=== PATIENT | female | born 1980 | race African-American/Black ===

== ENCOUNTER 2018-10-12 12:07 | Emergency (ER) | payer BC ==
--- NOTE | 2018-10-12 12:56 | ER Document Report ---
ED Medical Screen (RME) - General Chief Complaint: Dizziness Stated Complaint: WEAKNESS,LIGHT HEADED Time Seen by Provider: 10/12/18 12:43 Primary Care Provider: BRITTANY MILLIGAN MD [ACTIVE STAFF] - Follow up as needed (This is a number of primary care doctor that is affiliated with the hospital) Mode of Arrival: Ambulatory Information source: Patient Notes: This is a 37-year-old female who presents to the emergency room with feeling hot, sweats, palpitations. Patient does have a history of having a fast heartbeat and is previous been evaluated by a solar sales ambassador in [place] (Dr. Campo) and is previously been on metoprolol. Patient states she came off th e metoprolol after feeling well. She denies any fevers, chills, shortness of breath. She denies any recent illnesses. She denies any abdominal pain or episodes of diarrhea. TRAVEL OUTSIDE OF THE [place] IN LAST 30 DAYS: No - HPI Onset: Just prior to arrival Onset/Duration: Sudden Quality of pain: No pain Severity: None Associated Symptoms: denies: Chest pain, Fever, Shortness of breath Exacerbated by: Denies Relieved by: Denies Similar symptoms previously: Yes Recently seen / treated by doctor: No - Related Data Smoking: Non-smoker Frequency of alcohol use: None Drug Abuse: None Allergies/Adverse Reactions: No Known Allergies Allergy (Verified 10/12/18 12:09) Past Medical History - General Information source: Patient - Social History Cigarette use (# per day): No Chew tobacco use (# tins/day): No Frequency of alcohol use: None Drug Abuse: None Lives with: Family Family history: None - Past Medical History Cardiac Medical History: Reports: Other - History of tachycardia Pulmonary Medical History: Denies: Hx Asthma Endocrine Medical History: Reports: None Renal/ Medical History: Reports: None. Denies: Hx Peritoneal Dialysis Malignancy Medical History: Reports: None GI Medical History: Reports: None Musculoskeltal Medical History: Reports None Skin Medical History: Reports None Psychiatric Medical History: Reports: None Surgical Hx: Negative - Immunizations Hx Diphtheria, Pertussis, Tetanus Vaccination: Yes Review of Systems - Review of Systems Constitutional: denies: Chills, Fever EENT: No symptoms reported Cardiovascular: Palpitations, Heart racing. denies: Chest pain, Orthopnea, Syncope Respiratory: No symptoms reported Gastrointestinal: No symptoms reported Genitourinary: No symptoms reported Female Genitourinary: No symptoms reported Musculoskeletal: No symptoms reported Skin: No symptoms reported Hematologic/Lymphatic: No symptoms reported Neurological/Psychological: No symptoms reported Physical Exam - Vital signs Vitals: Temp Pulse Resp BP Pulse Ox 99.7 F 178 H 18 122/88 H 100 10/12/18 12:23 10/12/18 12:23 10/12/18 12:23 10/12/18 12:23 10/12/18 12:23 Notes: Physical exam: GENERAL: She is alert and oriented x3, no acute distress HEAD: Atraumatic, normocephalic. EYES: Pupils equal round and reactive to light, extraocular movements intact, sclera anicteric, conjunctiva are normal. ENT: TMs normal, nares patent, oropharynx clear without exudates. Moist mucous membranes. NECK: Normal range of motion, supple without obvious mass or JVD. LUNGS: Breath sounds clear to auscultation bilaterally and equal. No wheezes rales or rhonchi. HEART: Tachycardia without murmurs, rubs or gallops. ABDOMEN: Soft, normoactive bowel sounds. No tenderness to palpation. No guarding, no rebound. No masses appreciated. EXTREMITIES: Normal range of motion, no pitting or edema. No clubbing or cyanos is. NEUROLOGICAL: Cranial nerves II through XII grossly intact. Normal speech, moving all extremities. PSYCH: Normal mood, normal affect. SKIN: Warm, Dry, normal turgor, no rashes or lesions noted. Course - Re-evaluation Re-evalutation: 10/12/18 16:12 I have had a long discussion with the patient to avoid caffeine, chocolate, red wine, cheeses and black licorice. I have advised her to follow-up with a primary care doctor and I given her Dr. Jay Hope's number. - Vital Signs Vital signs: Temp Pulse Resp BP Pulse Ox 99.7 F 114 H 18 136/89 H 100 10/12/18 12:23 10/12/18 16:01 10/12/18 16:01 10/12/18 16:01 10/12/18 16:01 - Laboratory Result Diagrams: 10/12/18 13:26 10/12/18 13:26 Laboratory results interpreted by me: 10/12/18 10/12/18 13:26 13:26 RBC 5.30 H Chloride 108 H Glucose 119 H Calcium 10.3 H - EKG Interpretation by Me Rate: Tachycardia - EKG shows sinus tachycardia with a ventricular rate of 130, no acute ST-T wave changes Doctor's Discharge - Discharge Clinical Impression: Tachycardia Condition: Stable Disposition: HOME, SELF-CARE Additional Instructions: As we discussed your labs look quite good today. Your thyroid test (which could cause issues with fast heartbeat) were all normal. I renewed the metoprolol prescription: You can either take a half a tablet twice a day or 1 tablet daily. I do recommend you follow-up with your doctor: I put the number of one on the chart. Prescriptions: Metoprolol Tartrate [Lopressor 25 mg Tablet] 12.5 mg PO Q12 #30 tab Forms: Return to Work Referrals: BRITTANY MILLIGAN MD [ACTIVE STAFF] - Follow up as needed (This is a number of primary care doctor that is affiliated with the hospital)
[2018-10-12 13:42] LABS: ABSOLUTE EOSINOPHILS # (AUTO) 0.3 10^3/uL (0.0-0.6); ABSOLUTE LYMPHOCYTES (AUTO) 2.2 10^3/uL (0.5-4.7); ABSOLUTE MONOCYTES (AUTO) 0.4 10^3/uL (0.1-1.4); ABSOLUTE NEUT (AUTO) 2.7 10^3/uL (1.7-8.2); BASOPHILS % (AUTO) 0.6 % (0-2); EOSINOPHILS % (AUTO) 4.7 % (0-6); HEMATOCRIT 45.2 % (36.0-47.0); HEMOGLOBIN 15.1 g/dL (12.0-15.5); LYMPHOCYTES % (AUTO) 39.3 % (13-45); MEAN CORPUSCULAR HEMOGLOBIN 28.5 pg (27.0-33.4); MEAN CORPUSCULAR HGB CONC 33.4 g/dL (32.0-36.0); MEAN CORPUSCULAR VOLUME 85 fl (80-97); MONOCYTES % (AUTO) 7.1 % (3-13); PLATELET COUNT 232 10^3/uL (150-450); RED CELL DISTRIBUTION WIDTH 13.7 % (11.5-14.0); SEGMENTED NEUTROPHILS % (AUTO) 48.3 % (42-78); TOTAL CELLS COUNTED % (AUTO) 100 %; WHITE BLOOD COUNT 5.7 10^3/uL (4.0-10.5)
[2018-10-12 14:05] LABS: ALANINE AMINOTRANSFERASE 23 U/L (9-52); ALBUMIN 4.8 g/dL (3.5-5.0); ALKALINE PHOSPHATASE 57 U/L (38-126); ANION GAP 12 (5-19); ASPARTATE AMINO TRANSFERASE 22 U/L (14-36); BILIRUBIN,DIRECT 0.2 mg/dL (0.0-0.4); BILIRUBIN,TOTAL 0.3 mg/dL (0.2-1.3); BLOOD UREA NITROGEN 14 mg/dL (7-20); CALCIUM 10.3 mg/dL (8.4-10.2); CARBON DIOXIDE 23 mmol/L (22-30); CHLORIDE 108 mmol/L (98-107); GLUCOSE 119 mg/dL (75-110); SODIUM 143.2 mmol/L (137-145); TOTAL PROTEIN 8.2 g/dL (6.3-8.2)
[2018-10-12 14:35] LABS: FREE T3 4.04 pg/mL (2.77-5.27); FREE T4 (FREE THYROXINE) 1.04 ng/dL (0.78-2.19)
[2018-10-12 14:48] LABS: THYROID STIMULATING HORMONE 1.46 uIU/mL (0.47-4.68)
[2018-10-12 16:02] VITALS: BP 136/89
--- NOTE | 2018-10-12 20:53 | EKG REPORT ---
SEVERITY:- BORDERLINE ECG - SINUS TACHYCARDIA PROBABLE LEFT ATRIAL ABNORMALITY : Confirmed by: Sandra Mesa MD 12-Oct-2018 20:52:56
== END 2018-10-12 16:13 | disposition home or self-care (01) ==
LOC: ER 12:07
DX: R00.0 Tachycardia, unspecified (principal); R42 Dizziness and giddiness; R53.1 Weakness
CPT/HCPCS: 36415; 80053; 84439; 84443; 84481; 84702; 85025; 93005; 93010; 99285

== ENCOUNTER → 2019-10-10 | Outpatient (CLI) | payer BC ==
--- NOTE | 2019-10-10 16:04 | RADIOLOGY REPORT (SQ) ---
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 TECHNIQUE: Multiplanar imaging includes noncontrasted T1, T2, FLAIR, diffusion with ADC map and post gadolinium contrast T1 sequences. Images stored on PACS. CONTRAST TYPE AND DOSE: 20 mL Dotarem. RENAL FUNCTION: Not indicated. ACR Type II contrast agent associated with few, if any, unconfounded cases of NSF LIMITATIONS: None. FINDINGS: ANATOMY: No anomalies. Normal vascular flow voids. Pituitary fossa normal. CSF SPACES: Normal in size and contour. No hemorrhage. CEREBRUM: Sulci and gyri normal in size and contour. Normal white matter signal on FLAIR imaging. No evidence of hemorrhage, mass, or extraaxial fluid collection. No abnormal enhancement post contrast. POSTERIOR FOSSA: No signal alteration. No hemorrhage. No edema, masses, or mass effect. Internal joan tory canals, cerebellopontine angles, mastoids normal. No enhancing lesions. No abnormal enhancement post contrast. DIFFUSION IMAGING: Negative for acute or subacute infarction. ORBITS: No masses. Globes normal. PARANASAL SINUSES: No fluid levels. Mucosa normal. OTHER: Marrow signal in the calvarium look slightly heterogeneous. This may simply represent physiol ogic thickening of the inner table of the skull. Consider correlation with total body bone scan. IMPRESSION: 1. No overtly worrisome cranial changes. No enhancing metastatic lesions or acute abnormality. Mild ly heterogeneous skull. Consider total body bone scan. EVIDENCE OF ACUTE STROKE: NO. TECHNICAL DOCUMENTATION: JOB ID: [id number] 2010 [employer]- All Rights Reserved Reading location - IP/workstation name: [email or web address]
== END ==
LOC: RAD 14:24
PROVIDERS: ATTEND Nurse Practitioner Family
DX: R51 Headache (principal); H53.8 Other visual disturbances; C50.211 Malignant neoplasm of upper-inner quadrant of right female breast
CPT/HCPCS: 70553; A9576

== ENCOUNTER 2020-07-06 11:05 | Emergency (ER) | payer BC ==
--- NOTE | 2020-07-06 12:15 | ER Document Report ---
ED Medical Screen (RME) - General Chief Complaint: Weakness Stated Complaint: WEAKNESS Time Seen by Provider: 07/06/20 12:07 Primary Care Provider: DAVID BALTAZAR NP-C [Primary Care Provider] - Follow up as needed Information source: Patient Notes: Patient presents complaining of rapid heart rate for the past week. Patient states that she was having some dizziness 5 days ago but none since then. Patient states that she did see her primary doctor who advised her to double her dose of metoprolol. Patient states that she feels as though she was having a bad reaction after taking the metoprolol and has stopped that medicine for the past 3 days. Patient denies any chest pain. Patient denies any dizziness at this time. Patient does state that her food has been getting stuck whenever she eats and she will occasionally vomit it back up. Patient states she is supposed to have a barium swallow scheduled on outpatient basis. Patient states she did eat a cheeseburger and a milkshake last night and everything went down although she reports taking very small bites. I have greeted and performed a rapid initial assessment of this patient. A comprehensive ED assessment and evaluation of the patient, analysis of test results and completion of the medical decision making process will be conducted by additional ED providers. TRAVEL OUTSIDE OF THE [place] IN LAST 30 DAYS: No - Related Data Allergies/Adverse Reactions: No Known Allergies Allergy (Verified 10/12/18 12:09) Past Medical History - Social History Frequency of alcohol use: None Family history: None Pulmonary Medical History: Denies: Hx Asthma Renal/ Medical History: Denies: Hx Peritoneal Dialysis - Immunizations Hx Diphtheria, Pertussis, Tetanus Vaccination: Yes Physical Exam - Vital signs Vitals: Temp Pulse Resp BP Pulse Ox 98.0 F 110 H 16 128/73 H 100 07/06/20 11:07/06/20 11:07/06/20 11:07/06/20 11:07/06/20 11:27 - Respiratory Respiratory status: No respiratory distress Breath sounds: Normal - Cardiovascular Rhythm: Tachycardia Heart sounds: S1 appreciated, S2 appreciated Murmur: No Course - Vital Signs Vital signs: Temp Pulse Resp BP Pulse Ox 98.0 F 110 H 16 128/73 H 100 07/06/20 11:07/06/20 11:07/06/20 11:07/06/20 11:27 07/06/20 11:27 Doctor's Discharge - Discharge Referrals: DAVID BALTAZAR NP-C [Primary Care Provider] - Follow up as needed
--- NOTE | 2020-07-06 12:40 | RADIOLOGY REPORT (SQ) ---
EXAM DESCRIPTION: CHEST SINGLE VIEW IMAGES COMPLETED DATE/TIME: 07/06/2020 12:26 pm REASON FOR STUDY: rapid HR COMPARISON: 12/17/2013 EXAM PARAMETERS: NUMBER OF VIEWS: One view. TECHNIQUE: Single frontal radiographic view of the chest acquired. RADIATION DOSE: NA LIMITATIONS: None. FINDINGS: LUNGS AND PLEURA: Increased opacification throughout the lung bases compared to prior film . Suspect underlying basilar airspace disease right greater than left. [id number] remains in liyah ce. No pneumothorax. MEDIASTINUM AND HILAR STRUCTURES: No masses. Contour normal. HEART AND VASCULAR STRUCTURES: Mild cardiomegaly. No failure. BONES: No acute findings. HARDWARE: None in the chest. OTHER: No other significant finding. IMPRESSION: Increased opacification in both lung bases right greater than left most likely pneumonia . TECHNICAL DOCUMENTATION: JOB ID: [id number] 2010 [employer]- All Rights Reserved Reading location - IP/workstation name: [email or web address]
[2020-07-06 12:53] LABS: ABSOLUTE EOSINOPHILS # (AUTO) 0.1 10^3/uL (0.0-0.6); ABSOLUTE LYMPHOCYTES (AUTO) 1.4 10^3/uL (0.5-4.7); ABSOLUTE MONOCYTES (AUTO) 0.2 10^3/uL (0.1-1.4); ABSOLUTE NEUT (AUTO) 1.6 10^3/uL (1.7-8.2); BASOPHILS % (AUTO) 0.5 % (0-2); EOSINOPHILS % (AUTO) 1.7 % (0-6); HEMATOCRIT 37.2 % (36.0-47.0); LYMPHOCYTES % (AUTO) 42.6 % (13-45); MEAN CORPUSCULAR HEMOGLOBIN 26.7 pg (27.0-33.4); MEAN CORPUSCULAR HGB CONC 32.2 g/dL (32.0-36.0); MEAN CORPUSCULAR VOLUME 83 fl (80-97); MONOCYTES % (AUTO) 6.5 % (3-13); PLATELET COUNT 213 10^3/uL (150-450); RED BLOOD COUNT 4.47 10^6/uL (3.72-5.28); RED CELL DISTRIBUTION WIDTH 17.9 % (11.5-14.0); SEGMENTED NEUTROPHILS % (AUTO) 48.7 % (42-78); TOTAL CELLS COUNTED % (AUTO) 100 %; WHITE BLOOD COUNT 3.2 10^3/uL (4.0-10.5)
[2020-07-06 13:13] LABS: ALKALINE PHOSPHATASE 42 U/L (38-126); ANION GAP 12 (5-19); ASPARTATE AMINO TRANSFERASE 61 U/L (14-36); BILIRUBIN,TOTAL 0.7 mg/dL (0.2-1.3); BLOOD UREA NITROGEN 11 mg/dL (7-20); CALCIUM 9.6 mg/dL (8.4-10.2); CARBON DIOXIDE 21 mmol/L (22-30); CHLORIDE 109 mmol/L (98-107); GLUCOSE 104 mg/dL (75-110); POTASSIUM 3.5 mmol/L (3.6-5.0)
--- NOTE | 2020-07-06 14:08 | EKG REPORT ---
SEVERITY:- ABNORMAL ECG - SINUS TACHYCARDIA PROBABLE LEFT ATRIAL ABNORMALITY NONSPECIFIC T ABNORMALITIES, LATERAL LEADS : Confirmed by: Dennis Han MD 06-Jul-2020 14:07:31
[2020-07-06] MEDS ORDERED: NORMAL SALINE 1000 ML 1,000 ML IV ONE (14:52)
--- NOTE | 2020-07-06 15:00 | ER Document Report ---
ED Dizziness/Weakness - General Chief Complaint: Weakness Stated Complaint: WEAKNESS Time Seen by Provider: 07/06/20 12:07 Primary Care Provider: DAVID BALTAZAR NP-C [Primary Care Provider] - Follow up as needed Mode of Arrival: Ambulatory Information source: Patient Notes: 39-year-old woman presenting to the emergency department with a history of tachycardia. States that she was seen in her primary care doctor's office and started on a beta-ivania. Patient does not know the dose of the medication or which beta-ivania she was taken. However, states that it caused her to feel weaker and dizzy, on Monday she discontinued the medication. She presents to the emergency department now with tachycardia and continued weakness. She confirms shortness of breath with exertion and loss of energy. She denies chest pain or palpitations, she also denies history of thyroid problems. TRAVEL OUTSIDE OF THE [place] IN LAST 30 DAYS: No - Related Data Allergies/Adverse Reactions: No Known Allergies Allergy (Verified 10/12/18 12:09) Past Medical History - General Information source: Patient - Social History Smoking Status: Never Smoker Frequency of alcohol use: None Family History: Reviewed & Not Pertinent Pulmonary Medical History: Denies: Hx Asthma Renal/ Medical History: Denies: Hx Peritoneal Dialysis - Immunizations Hx Diphtheria, Pertussis, Tetanus Vaccination: Yes Review of Systems - Review of Systems Notes: Constitutional: + Fatigue HENT: Negative for sore throat. Eyes: Negative for visual changes. Cardiovascular: See HPI Respiratory: Negative for shortness of breath. Gastrointestinal: Negative for abdominal pain, vomiting or diarrhea. Genitourinary: Negative for dysuria. Musculoskeletal: Negative for back pain. Skin: Negative for rash. Neurological: Negative for headaches, weakness or numbness. 10 point ROS negative except as marked above and in HPI. Physical Exam - Vital signs Vitals: Temp Pulse Resp BP Pulse Ox 98.0 F 110 H 16 128/73 H 100 07/06/20 11:27 07/06/20 11:27 07/06/20 11:27 07/06/20 11:27 07/06/20 11:27 - Notes Notes: PHYSICAL EXAMINATION: Physical Exam: General: Well-nourished well-developed 39-year-old female in no acute distress HEENT: NC/AT, pupils equal round and reactive to light, MM moist,nares clear, oropharynx clear, airway patent Neck: supple, no adenopathy, no masses. Good range of motion Lungs: clear, no wheezing, no rales no rhonchi CVS: Tachycardic rate and rhythm no murmur gallop or rub Abdomen: Soft, active, nontender, no masses, no hepatosplenomegaly Ext: No edema, clubbing or cyanosis. Neuro: Alert and responsive, moving all 4 extremities on command, cranial nerves intact, no focal findings Skin: Intact no open lesions, no rash Course - Re-evaluation Re-evalutation: 07/06/20 17:36 The patient's chest x-ray has findings suggestive of bilateral bibasilar infiltrate right greater than left possible pneumonia. CT scan is negative for pulmonary embolus groundglass appearance within the basilar areas of the lungs bilaterally findings consistent with early failure or infection. I discussed the patient with the social insurance adviser on-call Dr. Han, given the minor bump in troponin infectious signs and symptoms on chest x-ray, it is felt that treating the patient's underlying pathology would be pertinent before using a rate controlling beta-ivania. I explained to the patient that she has been given a prescription for antibiotics as well as a steroid and follow-up with her primary care doctor per the appointment she has on would be reasonable plan. A COVID-19 swab is being collected and the patient has been made a person of interest. I have explained to the patient that she will have to self quarantine until she receives the results of the testing the patient acknowledges understanding of this plan. - Vital Signs Vital signs: Temp Pulse Resp BP Pulse Ox 98.0 F 110 H 16 128/73 H 99 07/06/20 11:27 07/06/20 11:27 07/06/20 11:27 07/06/20 11:27 07/06/20 12:13 - Laboratory Result Diagrams: 07/06/20 12:34 07/06/20 12:34 Laboratory results interpreted by me: 07/06/20 07/06/20 07/06/20 12:34 12:34 15:50 WBC 3.2 L MCH 26.7 L RDW 17.9 H Absolute Neuts (auto) 1.6 L Potassium 3.5 L Chloride 109 H Carbon Dioxide 21 L AST 61 H ALT 117 H Urine Protein 100 H 11/30/20 14:57 I have reviewed laboratory data and used this information for the treatment decisions regarding the patient. - Diagnostic Test Radiology reviewed: Image reviewed, Reports reviewed Radiology results interpreted by me: 07/06/20 14:58 Chest X-Ray 07/06/20 12:13 IMPRESSION: Increased opacification in both lung bases right greater than left most likely pneumonia. - EKG Interpretation by Me Rate: Tachycardia - EKG interpreted by Dr. Jeff: Sinus tachycardia, rate 135, DC interval 120 ms, QT interval 271 ms, normal axis, left atrial abnormality, nonspecific T wave abnormalities, no ischemic findings, there is no old EKG to compare to today's findings. Interpretation abnormal EKG Discharge - Discharge Clinical Impression: Tachycardia, Suspected COVID-19 virus infection Pneumonia Qualifiers: Pneumonia type: due to unspecified organism Laterality: bilateral Lung location: lower lobe of lung Qualified Code(s): J18.9 - Pneumonia, unspecified organism Condition: Good Disposition: HOME, SELF-CARE Instructions: COVID-19 Guidance for Persons Under Investigation Additional Instructions: You are seen in the emergency department with a history of resting fast hear tbeat. Findings on the x-ray today suggest that you may have an early pneumonia. You have been given prescription for antibiotics and a steroid. Because we are in a pandemic and the coronavirus can also call us some of the similar symptoms that you are having you are being made a person of interest. Please self quarantine until you receive the results of your test. Please follow-up with your primary care doctor on per the appointment that you have made. If your symptoms are worsening or if you are having increasing shortness of breath or other concerns you may return to the emergency department for further evaluation and treatment. HOME CARE INSTRUCTIONS & INFORMATION: Thank you for choosing us for your medical needs. We hope you're satisfied with the care you received. After you leave, you must properly care for your problem and, at the same time, observe its progress. Any condition can change. Some illnesses can change rapidly over hours or days. If your condition worsens, return to the Emergency Department or see your physician promptly. ABOUT YOUR X-RAYS AND EKG'S: If you had an EKG or X-rays taken, they have been read by the Emergency Physician. The X-rays and EKG's will also be read by a Radiologist or Drum Filler within 24 hours. If discrepancies are noted, you will be notified by telephone. Please be certain the ED has a correct telephone number & address where you can be reached. Also, realize that some fractures or abnormalities do not show up on initial X-rays. If your symptoms continue, see your physician. ABOUT YOUR LABORATORY TEST: If you had laboratory tests, the results have been reviewed by the Emergency Physician. Some test results (for example cultures) may not be available for several days. You will be contacted if any test result shows you need additional treatment. Please be certain the ED has a correct telephone number and address where you can be reached. ABOUT YOUR MEDICATIONS: You will receive instructions on how to take your medicine on the prescription label you receive. Additional information may be provided by the Pharmacy. If you have questions afterwards, call the ED for clarification or further instructions. Some prescribed medications may cause drowsiness. Do not perform tasks such as driving a car or operating machinery without consulting your Pharmacist. If you feel you need a refill of pain medication, your condition will need re-evaluation. Please do not call for a refill of any medication. ABOUT YOUR SIGNATURE: Signature of this document acknowledges to followin. Understanding that you received emergency treatment and that you may be released before al medical problems are known or treated. Please be certain the ED has a correct phone number & address where you can be reached. 2. Acknowledgement that you will arrange for follow-up care as recommended. 3. Authorization for the Emergency Physician to provide information to your follow-up Physician in order to maximize your care. AT ANY TIME, IF YOUR SYMPTOMS CHANGE SIGNIFICANTLY OR WORSEN OR YOU DEVELOP NEW SYMPTOMS, RETURN TO THE EMERGENCY DEPARTMENT IMMEDIATELY FOR RE-EVALUATION. OUR GOAL IS TO PROVIDE EXCELLENT MEDICAL CARE! WE HOPE THAT WE HAVE MET YOUR EXPECTATIONS DURING YOUR EMERGENCY DEPARTMENT VISIT AND THAT YOU FEEL YOU HAVE RECEIVED EXCELLENT CARE! Prescriptions: Dexamethasone [Decadron] 6 mg PO DAILY 5 Days #5 tablet Azithromycin [Zithromax 250 mg Tablet] 250 mg PO ASDIR PRN #6 tablet PRN Reason: Referrals: DAVID BALTAZAR NP-C [Primary Care Provider] - Follow up as needed
--- NOTE | 2020-07-06 15:47 | RADIOLOGY REPORT (SQ) ---
EXAM DESCRIPTION: CTA CHEST IMAGES COMPLETED DATE/TIME: 07/06/2020 3:37 pm REASON FOR STUDY: Tachycardia, shortness of breath COMPARISON: Chest x-ray done earlier the same day. TECHNIQUE: CT scan of the chest performed using helical scanning technique with dynamic intravenous contrast injection. Images reviewed with lung, soft tissue and bone windows. Reconstructed coronal and sagittal MPR images reviewed. Additional 3 dimensional post-processing performed to develop Maximal Intensity Projection images (IN P). All images stored on PACS. All CT scanners at this facility use dose modulation, iterative reconstruction, and/or weight based d osing when appropriate to reduce radiation dose to as low as reasonably achievable (ALARA). [facility]: Dose Right [facility]: CareDose [facility]: Dose Right [facility]: Teradose 4D [facility]: [employer]Web CONTRAST TYPE AND DOSE: contrast/concentration: Isovue 350.00 mmol/ml; Total Contrast Delivered: 75. 0 ml; Total Saline Delivered: 72.0 ml Contrast bolus optimized for the pulmonary arteries. Not diagnostic for the aorta. RENAL FUNCTION: BUN 11, creatinine 0.67 RADIATION DOSE: CT Rad equipment meets quality standard of care and radiation dose reduction techniq ues were employed. CTDIvol: 24.1 - 26.4 mGy. DLP: 945 mGy-cm. . LIMITATIONS: None. FINDINGS: LUNGS AND PLEURA: There are small bilateral pleural effusions right greater than left. No consolidation. Minimal areas of ground-glass opacity most likely atelectasis. Possibly developing edema. AORTA AND GREAT VESSELS: No aneurysm. Contrast bolus not optimized for the aorta. HEART: No pericardial effusion. No significant coronary artery calcifications. PULMONARY ARTERIES: No emboli visualized in the main pulmonary arteries or the segmental branches. HILAR AND MEDIASTINAL STRUCTURES: No identified masses or abnormal nodes. HARDWARE: None in the chest. UPPER ABDOMEN: No significant findings. Limited exam. THYROID AND OTHER SOFT TISSUES: No masses. No adenopathy. BONES: No acute or significant finding. 3D MIPS: Confirm above findings. OTHER: No other significant finding. IMPRESSION: Small bilateral pleural effusions and patchy ground-glass opacity either representing at electasis or developing edema. No focal consolidation. No pulmonary emboli. COMMENT: Quality ID # [id number]: Final reports with documentation of one or more dose reduction techniques (e.g., Automated exposure control, adjustment of the mA and/or kV according to patient size, use of iterative reconstruction technique) TECHNICAL DOCUMENTATION: JOB ID: [id number] 2010 [employer]- All Rights Reserved Reading location - IP/workstation name: [email or web address]
[2020-07-06 16:23] LABS: APPEARANCE,URINE SLIGHTLY-CLOUDY; BILIRUBIN,URINE NEGATIVE (NEGATIVE); COLOR,URINE YELLOW; GLUCOSE, URINE NEGATIVE (NEGATIVE); KETONES,URINE NEGATIVE (NEGATIVE); PROTEIN,URINE 100 mg/dL (NEGATIVE); URINE SPECIFIC GRAVITY 1.059; UROBILINOGEN,URINE NEGATIVE mg/dL (<2.0)
[2020-07-06 18:15] VITALS: BP 122/94
== END 2020-07-06 18:00 | disposition home or self-care (01) ==
LOC: ER 11:05
DX: J18.9 Pneumonia, unspecified organism (principal); R53.1 Weakness; R00.0 Tachycardia, unspecified; R53.83 Other fatigue; Z20.828 Contact with and (suspected) exposure to other viral communicable diseases
CPT/HCPCS: 93005; 99285; 96360; 36415; 83735; 84443; 84703; 85025; 80053; 81001; 84484; 71045; 71275; 93010; U0003; J7030; C9803; 87635

== ENCOUNTER → 2020-07-10 | Outpatient (CLI) | payer BC ==
--- NOTE | 2020-07-10 16:39 | RADIOLOGY REPORT (SQ) ---
EXAM DESCRIPTION: BARIUM SWALLOW ESOPHAGUS IMAGES COMPLETED DATE/TIME: 07/10/2020 8:41 am REASON FOR STUDY: (R13.10)DYSPHAGIA, UNSPECIFIED R13.10 DYSPHAGIA, UNSPECIFIED COMPARISON: None. TECHNIQUE: Under fluoroscopic guidance, patient ingested effervescent granules followed by thick and thin barium. Fluoroscopic spot images and routine radiographic images acquired and stored on PACS. 12 MM BARIUM TABLET GIVEN: Barium tablet passed through the esophagus and into the stomach without de lay. LIMITATIONS: None. FLUOROSCOPY TIME: FLUORO TIME: 3.7 minutes. 9 images saved to PACS. FINDINGS: NEUROMUSCULAR COORDINATION OF SWALLOW: Normal. No aspiration. ESOPHAGEAL MOTILITY: Esophageal dysmotility in the distal esophagus. No esophageal spasm. ESOPHAGEAL MUCOSA: There is a smooth narrowing in the distal 3rd of the esophagus, that has the appea rosalba of a right-sided extrinsic compression. However, upon review of the CT chest of 07/06/2020 the re is no mass in this area. Moderate stasis of the barium is seen through this area. GASTRO-ESOPHAGEAL JUNCTION: No hiatal hernia. Mild gastroesophageal reflux. NON-GI TRACT STRUCTURES: No significant finding. OTHER: No other significant finding. IMPRESSION: SMOOTH NARROWING OF THE DISTAL 3RD OF ESOPHAGUS WITH APPEARANCE OF EXTRINSIC COMPRESSION , HOWEVER COMPARISON CT DEMONSTRATES NO MASS IN THIS AREA. MODERATE ESOPHAGEAL DYSMOTILITY. MILD GA STROESOPHAGEAL REFLUX SEEN. RECOMMENDATION: UPPER ENDOSCOPY RECOMMENDED FOR FURTHER EVALUATION COMMENT: None Quality ID [id number]: Final reports for procedures using fluoroscopy that document radiation exposure meaghan ivan, or exposure time and number of fluorographic images (if radiation exposure indices are not avail able) TECHNICAL DOCUMENTATION: JOB ID: [id number] 2010 [employer]- All Rights Reserved Reading location - IP/workstation name: [email or web address] [id number]
== END ==
LOC: RAD 07:57
PROVIDERS: ATTEND Nurse Practitioner Adult Health
DX: K21.9 Gastro-esophageal reflux disease without esophagitis (principal); R13.10 Dysphagia, unspecified
CPT/HCPCS: 74220

== ENCOUNTER 2020-07-18 14:21 | Emergency (ER) | payer BC ==
--- NOTE | 2020-07-18 14:32 | ER Document Report ---
ED Medical Screen (RME) - General Stated Complaint: DIFFICULTY BREATHING LEFT SIDE PAIN Time Seen by Provider: 07/18/20 14:24 Primary Care Provider: BRITTANY MILLIGAN MD [Primary Care Provider] - Follow up as needed TRAVEL OUTSIDE OF THE [place] IN LAST 30 DAYS: No - HPI Notes: 07/18/20 14:30 39-year-old female with history of breast cancer currently in remission presents to ED for evaluation of increased shortness of breath. Patient recently seen by [facility] physician and was evaluated by an echocardiogram which showed weakened cardiac contractility. She was placed on Lasix and Entresto. Patient states that she has had increased shortness of breath as well as bilateral lower extremity swelling. Notes that she has increased dyspnea with exertion. Patient denies any sick contacts. Notes that she has some chest pressure. Patient states she also has a heart monitor in place however does not know which company it is from. Patient is supposed to see the food and beverage assistant manager for follow-up next week. - Related Data Allergies/Adverse Reactions: No Known Allergies Allergy (Verified 10/12/18 12:09) Past Medical History - Social History Family history: None Pulmonary Medical History: Denies: Hx Asthma Renal/ Medical History: Denies: Hx Peritoneal Dialysis - Immunizations Hx Diphtheria, Pertussis, Tetanus Vaccination: Yes Physical Exam - Vital signs Vitals: General: No acute distress. Alert and oriented x3. Sitting comfortably in a stretcher. Skin: No jaundice, pallor, petechiae, or rashes. Warm and dry. Heart: Regular rapid rate and rhythm. S1,S2. No murmurs, rubs, or gallops. Lungs: Clear to auscultation bilaterally. No wheezes, rhonchi, rales. Equal chest expansion. No retractions. Abdomen: Soft, nontender to palpation, nondistended. Positive bowel sounds in all 4 quadrants. No masses. No CVA tenderness bilaterally. Back: No midline spinal TTP. No paraspinous muscular TTP. Neuro: GCS 15. Moving all extremities without discomfort. Psych: Mood and affect appropriate. Doctor's Discharge - Discharge Referrals: BRITTANY MILLIGAN MD [Primary Care Provider] - Follow up as needed
--- NOTE | 2020-07-18 15:35 | RADIOLOGY REPORT (SQ) ---
EXAM DESCRIPTION: CHEST SINGLE VIEW IMAGES COMPLETED DATE/TIME: 07/18/2020 3:22 pm REASON FOR STUDY: dyspnea COMPARISON: Chest radiographs 07/06/2020. EXAM PARAMETERS: NUMBER OF VIEWS: One view. TECHNIQUE: Single frontal radiographic view of the chest acquired. RADIATION DOSE: NA LIMITATIONS: None. FINDINGS: LUNGS AND PLEURA: Elevation of the left hemidiaphragm. Left basilar consolidation. No pn eumothorax. MEDIASTINUM AND HILAR STRUCTURES: No masses. Contour normal. Surgical clips project over the right hilum. HEART AND VASCULAR STRUCTURES: Cardiomegaly. Normal vasculature. BONES: No acute findings. HARDWARE: Electronic device projecting over the left in the chest. Unchanged positioning of a left s mall port catheter. OTHER: Right axillary surgical clips. IMPRESSION: Left lower lobe volume loss. Left basilar consolidation likely representing atelectasis , infection and/or pleural effusion. TECHNICAL DOCUMENTATION: JOB ID: [id number] 2010 [employer]- All Rights Reserved Reading location - IP/workstation name: [email or web address]
[2020-07-18 16:08] LABS: ABSOLUTE LYMPHOCYTES (AUTO) 1.2 10^3/uL (0.5-4.7); ABSOLUTE MONOCYTES (AUTO) 0.9 10^3/uL (0.1-1.4); ABSOLUTE NEUT (AUTO) 7.7 10^3/uL (1.7-8.2); BASOPHILS % (AUTO) 0.4 % (0-2); EOSINOPHILS % (AUTO) 0.4 % (0-6); HEMATOCRIT 38.8 % (36.0-47.0); HEMOGLOBIN 12.6 g/dL (12.0-15.5); LYMPHOCYTES % (AUTO) 11.7 % (13-45); MEAN CORPUSCULAR HEMOGLOBIN 26.6 pg (27.0-33.4); MEAN CORPUSCULAR HGB CONC 32.6 g/dL (32.0-36.0); MEAN CORPUSCULAR VOLUME 82 fl (80-97); MONOCYTES % (AUTO) 9.2 % (3-13); PLATELET COUNT 231 10^3/uL (150-450); RED BLOOD COUNT 4.76 10^6/uL (3.72-5.28); RED CELL DISTRIBUTION WIDTH 17.5 % (11.5-14.0); SEGMENTED NEUTROPHILS % (AUTO) 78.3 % (42-78); TOTAL CELLS COUNTED % (AUTO) 100 %; WHITE BLOOD COUNT 9.9 10^3/uL (4.0-10.5)
[2020-07-18 16:12] LABS: INTERNATIONAL RATION (INR) 1.41; PROTHROMBIN TIME 17.4 SEC (11.4-15.4)
[2020-07-18 16:28] LABS: ALBUMIN 3.8 g/dL (3.5-5.0); ALKALINE PHOSPHATASE 48 U/L (38-126); ANION GAP 13 (5-19); ASPARTATE AMINO TRANSFERASE 96 U/L (14-36); BILIRUBIN,DIRECT 0.3 mg/dL (0.0-0.4); BILIRUBIN,TOTAL 1.4 mg/dL (0.2-1.3); BLOOD UREA NITROGEN 17 mg/dL (7-20); CALCIUM 9.2 mg/dL (8.4-10.2); CARBON DIOXIDE 23 mmol/L (22-30); CHLORIDE 105 mmol/L (98-107); CREATINE KINASE 60 U/L (30-135); GLUCOSE 114 mg/dL (75-110); POTASSIUM 3.8 mmol/L (3.6-5.0); TOTAL PROTEIN 6.9 g/dL (6.3-8.2)
[2020-07-18 16:39] LABS: NT PRO BNP 4190 pg/mL (<125); TROPONIN I 0.019 ng/mL
[2020-07-18 16:40] LABS: CREATINE KINASE MB < 0.22 ng/mL (<4.55)
--- NOTE | 2020-07-18 18:59 | ER Document Report ---
Entered by ABDIRASHID PANDYA SCRIBE 07/18/20 1823 Acting as scribe for:YASIR WEATHERS MD ED Respiratory Problem - General Chief Complaint: Shortness Of Breath Stated Complaint: DIFFICULTY BREATHING LEFT SIDE PAIN Time Seen by Provider: 07/18/20 14:24 Information source: Patient, [facility] Records Notes: This 39 year old female patient presents to the emergency department today with complaints of shortness of breath. Patient has been having shortness of breath the last few weeks. She was seen here on 07/06/2020 and had a CTA of the chest which was read as small bilateral pleural effusions and patchy groundglass opacity either representing atelectasis or developing edema. No focal consolid ations and no pulmonary emboli. Or heart rate on EKG was 135 on that visit. She followed up with Dr Dennis Han from cardiology and had an echo done and a heart monitor placed. She does not know what the echo showed, but was told that her heart muscle was weak. I did call her primary care provider who knew that she had a reduced ejection fraction, but he did not have the percent EF reading. She was started on Entresto and Lasix 20 mg daily on 07/16/2020, and continued on metoprolol. She reports she has been urinating quite a bit on the Lasix, and has been avoiding foods that are high in sodium content. She reports she has been having increasing shortness of breath and dyspnea on exertion and that her legs have been swelling since she started taking the Entresto and Lasix. Patient's past history is significant for right-sided breast cancer, she was on chemo from August 2019 through December 2019, had a double mastectomy on February 2020 with a right axillary node dissection. She also became hypertensive after her surgery and was started on metoprolol for this. TRAVEL OUTSIDE OF THE [place] IN LAST 30 DAYS: No - Related Data Allergies/Adverse Reactions: No Known Allergies Allergy (Verified 07/18/20 16:05) Past Medical History - General Information source: Patient, [facility] Records - Social History Smoking Status: Never Smoker Cigarette use (# per day): No Chew tobacco use (# tins/day): No Smoking Education Provided: No Frequency of alcohol use: None Drug Abuse: None Lives with: Family Family History: Reviewed & Not Pertinent - Past Medical History Cardiac Medical History: Reports: Hx Congestive Heart Failure, Hx Hypertension, Other - Cardiomyopathy Pulmonary Medical History: Reports: None EENT Medical History: Reports: None Neurological Medical History: Reports: None Endocrine Medical History: Reports: None Renal/ Medical History: Reports: None Malignancy Medical History: Reports: Hx Breast Cancer - R breast ca. chemo 08/2019-12/2019. Bilateral mastectomy 02/2020 Past Surgical History: Reports: Hx Mastectomy - Bilateral mastectomy with axillary node dissection February 2020 - Immunizations Hx Diphtheria, Pertussis, Tetanus Vaccination: Yes Review of Systems - Review of Systems Constitutional: No symptoms reported EENT: No symptoms reported Cardiovascular: No symptoms reported Respiratory: See HPI, Short of breath Gastrointestinal: No symptoms reported Genitourinary: No symptoms reported Female Genitourinary: No symptoms reported Musculoskeletal: See HPI, Leg swelling, Ankle swelling Skin: No symptoms reported Hematologic/Lymphatic: No symptoms reported Neurological/Psychological: No symptoms reported -: Yes All other systems reviewed and negative Physical Exam - Vital signs Vitals: Resp Pulse Ox 20 18 L 07/18/20 15:00 07/18/20 15:00 - General General appearance: Alert In distress: Mild - HEENT Head: Normocephalic, Atraumatic Eyes: Normal Pupils: PERRL - Respiratory Respiratory status: Tachypnea Breath sounds: Rales Chest palpation: Other - Patient has a PowerPort, and a monitoring engineer on the left side. - Cardiovascular Rhythm: Tachycardia Heart sounds: Normal auscultation - Abdominal Inspection: Obese Bowel sounds: Normal Tenderness: Nontender - Back Back: Normal - Extremities General upper extremity: Normal inspection General lower extremity: Edema - 1+ pitting edema - Neurological Neuro grossly intact: Yes - Psychological Associated symptoms: Normal affect, Normal mood - Skin Skin Temperature: Warm Skin Moisture: Dry Skin Color: Normal Course - Re-evaluation Re-evalutation: 07/18/20 20:38 Patient was initially accepted by her primary care provider Dr. Kline. Consultation was made to the on-call dance master Dr. Campo. Dr. Campo called her dance master Dr. Han who said her ejection fraction was in the 20s, she was supposed to go to [place] on Monday for a cardiac cath, so Dr. Han called [place] to see if they would accept her in transfer this evening. I received a call from the transfer center and eventually spoke with Dr. Clark from the CICU and he accepted the patient to their unit to maximize her medical therapy under their care. - Vital Signs Vital signs: Temp Pulse Resp BP Pulse Ox 98.2 F 28 H 92/60 L 100 07/18/20 19:42 07/18/20 19:42 07/18/20 21:11 07/18/20 19:42 - Laboratory Results Result Diagrams: 07/18/20 15:56 07/18/20 15:56 Laboratory Results Interpreted: 07/18/20 07/18/20 07/18/20 15:56 15:56 15:56 MCH 26.6 L RDW 17.5 H Lymph % (Auto) 11.7 L Seg Neutrophils % 78.3 H PT D-Dimer Glucose 114 H Total Bilirubin 1.4 H AST 96 H ALT 255 H NT-Pro-B Natriuret Pep 4190 H 07/18/20 07/18/20 15:56 15:59 MCH RDW Lymph % (Auto) Seg Neutrophils % PT 17.4 H D-Dimer 2.56 H Glucose Total Bilirubin AST ALT NT-Pro-B Natriuret Pep Critical Laboratory Results Reviewed: Yes Attending or Supervising Physician who Reviewed Labs: YASIR WEATHERS - Elevated BNP - Radiology Results Radiology Results Interpreted: 07/18/20 19:29 See the radiology CXR report. Critical Radiology Results Reviewed: Yes Attending or Supervising Physician who Reviewed Radiology: YASIR WEATHERS - PVC - EKG Interpretation by Nv EKG shows normal: Sinus rhythm, Huddy, Intervals, QRS Complexes, ST-T Waves Rate: Tachycardia - 145 Voltage: Consistent with LVH P Waves: LAE When compared to previous EKG there are: Changes noted - Consults Dr. Kline Time consulted: 18:20 Consulted provider: will see as inpatient - IMCU admission and consult Dr. Emma bustos for cardiology. Dr. Campo Time consulted: 19:00 Consulted provider: will see as inpatient - Plans to contact Dr. Han tomorrow about his patient. - Transfer of Care Care transferred to following provider: Dr. Lazaro Notes: 07/18/20 21:46 Patient is pending transfer to [facility]. [facility] will be transporting the patient. Critical Care Note - Critical Care Note Total time excluding time spent on procedures (mins): 35 Comments: At least 35 minutes spent evaluating the patient getting history and physical, reviewing x-rays lab work, reviewing prior visits with CT scans and lab work. Discussing the patient with her primary care provider to get admission started, discussing the patient with on-call cardiology. Reevaluations of the patient while she is in tachycardia with low blood pressure and mild congestive heart failure. Discharge - Discharge Clinical Impression: Congestive cardiomyopathy, Tachycardia Congestive heart failure (CHF) Qualifiers: Heart failure type: unspecified Heart failure chronicity: acute Qualified Code(s): I50.9 - Heart failure, unspecified Hypotension Qualifiers: Hypotension type: unspecified hypotension type Qualified Code(s): I95.9 - Hypotension, unspecified Condition: Fair Disposition: ADMITTED INPATIENT Admitting Provider: [facility] Unit Admitted: IMCU I personally performed the services described in the documentation, reviewed and edited the documentation which was dictated to the scribe in my presence, and it accurately records my words and actions.
[2020-07-18] MEDS ORDERED: FUROSEMIDE INJ/PF 20 MG/2 ML SDV IV ONE (19:10)
[2020-07-18] MEDS ORDERED: ONDANSETRON HCL INJ/PF 4 MG/2 ML SDV IV ONE (19:14)
[2020-07-18] MEDS ORDERED: ONDANSETRON HCL INJ/PF 4 MG/2 ML SDV ONE (19:15)
--- NOTE | 2020-07-18 21:37 | Progress Note ---
Provider Note Provider Note: Consultation was provided to ER physician via phone. The patient had already been scheduled to undergo LHC at [facility] by her outpatient mud analysis well logging captain, Dr. Han. The patient is fairly sick at this point and will require advanced therapies not available at this facility therefore it was recommended that she be transferred to [facility]. Dr. Han was contacted who graciously facilitated the process and the patient had been accepted to the CICU at [facility]. Dr. Kauffman in our ED was made aware of the acceptance. He was given my direct personal cell number to contact me with any questions.
[2020-07-18 22:00] VITALS: BP 110/80
== END 2020-07-18 22:20 | disposition short-term general hospital (02) ==
LOC: ER 14:21 → UNDOADMIN 19:23 → EH 19:23 → UNDODISIN 22:19 → EH 22:20
DX: I42.0 Dilated cardiomyopathy (principal); I11.0 Hypertensive heart disease with heart failure; I50.9 Heart failure, unspecified; I95.9 Hypotension, unspecified; R00.0 Tachycardia, unspecified; Z85.3 Personal history of malignant neoplasm of breast; Z92.21 Personal history of antineoplastic chemotherapy; Z79.899 Other long term (current) drug therapy; Z20.828 Contact with and (suspected) exposure to other viral communicable diseases
CPT/HCPCS: 99284; 96374; 96375; 36415; 82553; 82550; 83735; 85025; 85610; 0241U ×4; 80053; 84484; 85379; 83880; 71045; J1940; J2405; C9803